=== PATIENT | male | born 1995 | race Caucasian/White ===

== ENCOUNTER 2021-08-16 21:07 | Emergency (ER) | payer SELFPAY ==
[~2021-08-16] VITALS: Ht 167.6 cm; Wt 59.0 kg
[2021-08-16 21:50] LABS: BASO # 0.1 x10^3/uL (0.0-0.2); BASO % 1 % (0-3); EOS % 0 % (0-3); HEMATOCRIT 44.6 % (39.0-53.0); HEMOGLOBIN 15.2 g/dL (13.0-17.5); LYMPH # 2.3 x10^3/uL (1.0-4.8); LYMPH % 16 % (24-48); MEAN CORPUSCULAR HEMOGLOBIN 30 pg (25-35); MEAN CORPUSCULAR HGB CONC 34 g/dL (31-37); MEAN CORPUSCULAR VOLUME 87 fL (79-100); MONO # 1.5 x10^3/uL (0.0-1.1); MONO % 10 % (0-9); NEUT # 10.7 x10^3/uL (1.8-7.7); NEUT % 73 % (31-73); PLATELET COUNT 252 x10^3/uL (140-400); RED BLOOD COUNT 5.16 x10^6/uL (4.30-5.70); RED CELL DISTRIBUTION WIDTH 13.6 % (11.5-14.5); WHITE BLOOD COUNT 14.6 x10^3/uL (4.0-11.0)
[2021-08-16 22:01] LABS: CREATININE 1.1 mg/dL (0.7-1.3); GFR 80.3; POTASSIUM 4.1 mmol/L (3.5-5.1)
[2021-08-16 22:07] LABS: ACETAMIN < 2.0 mcg/ml (10-30); ALBUMIN 4.2 g/dL (3.4-5.0); ALBUMIN/GLOBULIN RATIO 1.1 (1.0-1.7); ETHANOL < 10 mg/dL (0-10); SALIC < 0.2 mg/dL (2.8-20.0); TOTAL BILIRUBIN 1.8 mg/dL (0.2-1.0); TOTAL PROTEIN 8.2 g/dL (6.4-8.2)
[2021-08-16 22:30] LABS: BILIRUBIN,URINE SMALL (NEG); CLARITY,URINE CLEAR; COLOR,URINE AMBER; NITRITE,URINE NEGATIVE (NEG); PH,URINE 6.5 (<5.0-8.0); PROTEIN,URINE 30 mg/dL (NEG-TRACE)
[2021-08-16] MEDS ORDERED: IV NORMAL SALINE 1000ML BAG 1,000 ML IV ONE (22:30)
[2021-08-16 22:40] LABS: AMPHETAMINE/METHAMPHETAMINE POS (NEG); BARBITURATES NEG (NEG); BENZODIAZEPINES NEG (NEG); CANNABINOIDS NEG (NEG); COCAINE NEG (NEG); METHADONE NEG (NEG); OPIATES NEG (NEG); PHENCYCLIDINE NEG (NEG)
[2021-08-16 22:58] LABS: BACTERIA,URINE FEW /HPF (0-FEW)
--- NOTE | 2021-08-17 00:18 | PHYS DOC ---
General Adult EDM: Chief Complaint: DRUG ABUSE HPI: HPI: Patient is a 26 year old male with history of drug use, unknown psych history at this point presenting today stating he has a mother board implanted in his left lower back that was implanted a couple days ago, he states this mother board has received a lot of information today. Patient goes ahead to talk about information that does not make sense. He states he was recently discharged from a psych facility after being admitted for 120 days in [facility]. (JERMAN MUSATFA OPHTHALMOLOGY TECHNICIAN) Review of Systems: Review of Systems: Constitutional: Denies fever or chills. [] Eyes: Denies change in visual acuity. [] HENT: Denies nasal congestion or sore throat. [] Respiratory: Denies cough or shortness of breath. [] Cardiovascular: Denies chest pain or edema. [] GI: Denies abdominal pain, nausea, vomiting, bloody stools or diarrhea. [] : Denies dysuria. [] Musculoskeletal: Denies back pain or joint pain. [] Integument: Denies rash. [] Neurologic: Denies headache, focal weakness or sensory changes. [] Psychiatric: Visit for psych evaluation (JERMAN MUSTAFA OPHTHALMOLOGY TECHNICIAN) Heart Score: C/O Chest Pain: N/A Risk Factors: Risk Factors: DM, Current or recent (<one month) smoker, HTN, HLP, family history of CAD, obesity. Risk Scores: Score 0 - 3: 2.5% MACE over next 6 weeks - Discharge Home Score 4 - 6: 20.3% MACE over next 6 weeks - Admit for Clinical Observation Score 7 - 10: 72.7% MACE over next 6 weeks - Early Invasive Strategies (JERMAN MUSTAFA OPHTHALMOLOGY TECHNICIAN) Current Medications: Current Medications Medications (Trade) Dose Ordered Sig/Clarke Start Time Stop Time Status Last Admin Dose Admin Sodium Chloride 1,000 ml @ 1,000 mls/hr 1X ONCE 08/16/21 22:30 08/16/21 23:29 DC 08/16/21 22:46 1,000 MLS/HR (JERMAN MUSTAFA OPHTHALMOLOGY TECHNICIAN) Allergies: Allergies: Allergies Coded Allergies Type Severity Reaction Last Updated Verified No Known Drug Allergies 08/16/21 No (JERMNA MUSTAFA APRN) Physical Exam: PE: Constitutional: Well developed, well nourished, no acute distress, non-toxic appearance. [] HENT: Normocephalic, atraumatic, bilateral external ears normal, oropharynx moist, no oral exudates, nose normal. [] Eyes: PERRLA, EOMI, conjunctiva normal, no discharge. [] Neck: Normal range of motion, no tenderness, supple, no stridor. [] Cardiovascular:Heart rate regular rhythm, no murmur [] Lungs & Thorax: Bilateral breath sounds clear to auscultation [] Abdomen: Bowel sounds normal, soft, no tenderness, no masses, no pulsatile masses. [] Skin: Warm, dry, no erythema, no rash. [] Back: No tenderness, no CVA tenderness. [] Extremities: No tenderness, no cyanosis, no clubbing, ROM intact, no edema. [] Neurologic: Alert and oriented X 3, normal motor function, normal sensory function, no focal deficits noted. [] Psychologic: Restless, fidgeting (MUTUNGA,JERMAN M OPHTHALMOLOGY TECHNICIAN) PE: Constitutional: Well developed, well nourished, no acute distress, non-toxic appearance HENT: Normocephalic, atraumatic Eyes: Conjunctiva normal, no discharge Neck: Normal range of motion, supple Lungs & Thorax: No respiratory distress, equal chest rise and fall Abdomen: Soft, no tenderness Skin: Warm, dry, no erythema, no rash Extremities: No tenderness, ROM intact, no edema Neurologic: Alert and oriented X 3, no focal deficits noted Psychologic: Paranoid with flight of ideas, denies suicidal ideation (REYNALDO RENDON DO) Current Patient Data: Labs: Laboratory Tests Test 08/16/21 21:40 08/16/21 22:25 08/16/21 22:55 White Blood Count 14.6 x10^3/uL (4.0-11.0) H Red Blood Count 5.16 x10^6/uL (4.30-5.70) Hemoglobin 15.2 g/dL (13.0-17.5) Hematocrit 44.6 % (39.0-53.0) Mean Corpuscular Volume 87 fL (79-100) Mean Corpuscular Hemoglobin 30 pg (25-35) Mean Corpuscular Hemoglobin Concent 34 g/dL (31-37) Red Cell Distribution Width 13.6 % (11.5-14.5) Platelet Count 252 x10^3/uL (140-400) Neutrophils (%) (Auto) 73 % (31-73) Lymphocytes (%) (Auto) 16 % (24-48) L Monocytes (%) (Auto) 10 % (0-9) H Eosinophils (%) (Auto) 0 % (0-3) Basophils (%) (Auto) 1 % (0-3) Neutrophils # (Auto) 10.7 x10^3/uL (1.8-7.7) H Lymphocytes # (Auto) 2.3 x10^3/uL (1.0-4.8) Monocytes # (Auto) 1.5 x10^3/uL (0.0-1.1) H Eosinophils # (Auto) 0.0 x10^3/uL (0.0-0.7) Basophils # (Auto) 0.1 x10^3/uL (0.0-0.2) Sodium Level 141 mmol/L (136-145) Potassium Level 4.1 mmol/L (3.5-5.1) Chloride Level 101 mmol/L (98-107) Carbon Dioxide Level 25 mmol/L (21-32) Anion Gap 15 (6-14) H Blood Urea Nitrogen 29 mg/dL (8-26) H Creatinine 1.1 mg/dL (0.7-1.3) Estimated GFR (Cockcroft-Gault) 80.3 BUN/Creatinine Ratio 26 (6-20) H Glucose Level 89 mg/dL (70-99) Calcium Level 9.0 mg/dL (8.5-10.1) Total Bilirubin 1.8 mg/dL (0.2-1.0) H Aspartate Amino Transferase (AST) 73 U/L (15-37) H Alanine Aminotransferase (ALT) 89 U/L (16-63) H Alkaline Phosphatase 53 U/L (46-116) Total Protein 8.2 g/dL (6.4-8.2) Albumin 4.2 g/dL (3.4-5.0) Albumin/Globulin Ratio 1.1 (1.0-1.7) Lipase 128 U/L (73-393) Salicylates Level < 0.2 mg/dL (2.8-20.0) L Salicylate Last Dose Date Unknown Salicylate Last Dose Time Unknown Acetaminophen Level < 2.0 mcg/ml (10-30) L Acetaminophen Last Dose Date Unknown Acetaminophen Last Dose Time Unknown Ethyl Alcohol Level < 10 mg/dL (0-10) Urine Collection Type Void Urine Color Radha Urine Clarity Clear Urine pH 6.5 (<5.0-8.0) Urine Specific Echo >=1.030 (1.000-1.030) Urine Protein 30 mg/dL (NEG-TRACE) Urine Glucose (UA) Negative mg/dL (NEG) Urine Ketones (Stick) 40 mg/dL (NEG) Urine Blood Negative (NEG) Urine Nitrite Negative (NEG) Urine Bilirubin Small (NEG) Urine Urobilinogen Dipstick 1.0 mg/dL (0.2 mg/dL) Urine Leukocyte Esterase Trace (NEG) Urine RBC 1-2 /HPF (0-2) Urine WBC 1-4 /HPF (0-4) Urine Squamous Epithelial Cells Few /LPF Urine Bacteria Few /HPF (0-FEW) Urine Mucus Marked /LPF Urine Opiates Screen Neg (NEG) Urine Methadone Screen Neg (NEG) Urine Barbiturates Neg (NEG) Urine Phencyclidine Screen Neg (NEG) Urine Amphetamine/Methamphetamine Pos (NEG) Urine Benzodiazepines Screen Neg (NEG) Urine Cocaine Screen Neg (NEG) Urine Cannabinoids Screen Neg (NEG) Urine Ethyl Alcohol Neg (NEG) SARS-CoV-2 Antigen (Rapid) Negative (NEGATIVE) Laboratory Tests 08/16/21 21:40 Laboratory Tests 08/16/21 21:40 (JERMAN MUSTAFA APRN) EKG: EKG: [] (JERMAN MUSTAFA APRN) Radiology/Procedures: Radiology/Procedures: [] (JERMAN MUSTAFA APRN) Course & Med Decision Making: Course & Med Decision Making Pertinent Labs and Imaging studies reviewed. (See chart for details) This a 26-year-old male patient presenting to the ED today for psych evaluation. Patient believes he has an implanted motherboard receiving a lot of i nformation right now. He admits to using methamphetamine. CBC with a WBC of 14.6 otherwise no acute findings, CMP noted for slightly elevated bilirubin at 1.8, AST of 73, ALT of 89, ALK is normal. BUN is 29, creatinine is normal. UDS positive for methamphetamine use Patient was given IV fluids in the ED. Stanley from the PAT team will evaluate patient and decide on placement [id number] Laureano (JERMAN MUSTAFA OPHTHALMOLOGY TECHNICIAN) Course & Med Decision Making Concern for meth intoxication with hallucinations. Patient is pending PAT team evaluation. Due to shift change patient was signed out to oncoming physician Dr. Rendon for further medical evaluation and disposition. (KAMILAH LAUREANO DO) Course & Med Decision Making [id number]-signout received from Dr. Laureano for patient with paranoia complicated by methamphetamine abuse. Labs reviewed. Patient pending psychiatric assessment team at reevaluation. 1045-psychiatric assessment team evaluation performed. Patient denies suicidal ideation. Patient does have a drug addiction to methamphetamines. Patient deemed safe for discharge home with outpatient follow-up with [facility]. [facility] resour lucius provided. Patient stable for discharge with outpatient follow-up with PCP. Discussed findings and plan with patient, who acknowledges understanding and agreement. (REYNALDO RENDON DO) Dragon Disclaimer: Dragon Disclaimer: This electronic medical record was generated, in whole or in part, using a voice recognition dictation system. (JERMAN MUSTAFA APRN) Departure Departure Impression: Primary Impression: Methamphetamine use Additional Impressions: Hallucinations Paranoia Disposition: 01 HOME / SELF CARE / HOMELESS Condition: STABLE Patient Instructions: Alcohol and Drug Addiction, Finding Treatment, Drug Abuse and Addiction-SportsMed, Hallucinations and Delusions, Methamphetamine Abuse, Complications, Paranoia Additional Instructions: Please call [facility] at to seek help for your mental health and/or drug/alcohol abuse. Attending Signature Attending Signature I have personally interviewed and examined the patient. All charts, labs, and imaging studies were reviewed. I agree with the PA/SIDE GUIDER's findings, exam, and plan. (REYNALDO RENDON DO) JERMAN MUSTAFA APRN Aug 17, 2021 00:18 KAMILAH LAUREANO DO Aug 17, 2021 06:26 REYNALDO RENDON DO Aug 17, 2021 10:56
[2021-08-17 11:55] VITALS: BP 155/86
== END 2021-08-17 11:55 | disposition home or self-care (01) ==
LOC: ER 21:07
DX: F15.90 Other stimulant use, unspecified, uncomplicated (principal); R44.3 Hallucinations, unspecified; Z20.822 Contact with and (suspected) exposure to COVID-19
CPT/HCPCS: 80053; 80307; 80329; 81001; 83690; 85025; 87086; 87426; 96361; 96374; 99283; C9803; G0480; J2060; J7030; U0003